=== PATIENT | female | born 1945 | race Caucasian/White ===

== ENCOUNTER 2021-10-22 14:30 | Outpatient (REF) | payer MEDICARE, MEDICAID, SELFPAY ==
[2021-10-22 15:07] LABS: COVID-19 Test Negative (Negative)
== END 2021-10-22 14:31 | disposition home or self-care (01) ==
LOC: HO.LAB 14:30
PROVIDERS: PCP Internal Medicine; Visit Provider Internal Medicine
DX: Z20.822 Contact with and (suspected) exposure to COVID-19 (principal)
CPT/HCPCS: 36415; 87635; C9803

== ENCOUNTER 2025-01-21 19:05 | Emergency (ER) | payer MEDICARE, MEDICAID, SELFPAY ==
--- NOTE | 2025-01-21 | ECG_ITS ---
Test Reason : FALL Blood Pressure : */* mmHG Vent. Rate : 73 BPM Atrial Rate : 73 BPM P-R Int : 154 ms QRS Dur : 80 ms QT Int : 416 ms P-R-T Axes : 67 -22 41 degrees QTcB Int : 458 ms Sinus rhythm with Premature atrial complexes with Aberrant conduction Septal infarct , age undetermined Abnormal ECG No previous ECGs available Referred By: Generic ED Physician Electronically Signed By: Camilo Penn
--- NOTE | ~2025-01-21 | XR_ITS ---
CLINICAL HISTORY: pain 2 view left knee Comparison: None Findings: No fractures or dislocations. Severe degenerative disease with joint space narrowing, and tricompartmental osteophytosis. No joint effusion. No radiopaque foreign body. IMPRESSION: 1. No acute findings. 2. Severe DJD. This document has been electronically signed by: Daniela Coleman MD on 01/21/2025 21:53:33
--- NOTE | ~2025-01-21 | CT_ITS ---
CLINICAL HISTORY: fall with head strike CT cervical spine without contrast Comparison: None Findings: Severe multilevel spondylosis with disc space narrowing, endplate sclerosis, osteophytosis and facet arthropathy with moderate reversal of the normal cervical lordosis and dextroscoliosis. Trace anterolisthesis of C2 and C3. No acute fractures or dislocations. No acute findings on limited view of the intracranial contents. No cervical fluid collections or masses. Lung apices are clear. IMPRESSION: No evidence of acute fracture or traumatic listhesis of the cervical spine. Severe multilevel spondylosis. This document has been electronically signed by: Daniela Coleman MD on 01/21/2025 21:40:03
--- NOTE | ~2025-01-21 | XR_ITS ---
CLINICAL HISTORY: shoulder pain 2 view right shoulder Comparison: None Findings: Bones intact. No dislocations. Moderate to severe degenerative disease of the glenohumeral joint with joint space narrowing and osteophytosis. No erosions. No radiopaque foreign body. IMPRESSION: Moderate to severe degenerative disease of the glenohumeral joint with joint space narrowing and osteophytosis. This document has been electronically signed by: Daniela Coleman MD on 01/21/2025 21:54:28
--- NOTE | ~2025-01-21 | XR_ITS ---
CLINICAL HISTORY: fall 1 view chest x-ray Comparison: None Findings: The lungs are clear. Normal size heart. No acute fracture. IMPRESSION: 1. No acute findings. This document has been electronically signed by: Daniela Coleman MD on 01/21/2025 21:23:50
--- NOTE | ~2025-01-21 | XR_ITS ---
CLINICAL HISTORY: fall 2 view pelvis Comparison: None Findings: No acute fracture or dislocation. Severe multilevel spondylosis of the lumbar spine with severe levoscoliosis. Soft tissues are unremarkable. IMPRESSION: 1. No evidence of acute fracture or dislocation. This document has been electronically signed by: Daniela Coleman MD on 01/21/2025 21:24:55
--- NOTE | ~2025-01-21 | CT_ITS ---
CLINICAL HISTORY: fall with head strike CT head without contrast Comparison: None Findings: No intra-axial mass, midline shift, hydrocephalus, or acute hemorrhage. No significant atrophy-like change or white matter disease. Right frontal possible arachnoid cyst with calvarial remodeling. There is no sinus or mastoid fluid. The orbits are unremarkable. There is no acute fracture. IMPRESSION: 1. No acute intracranial findings specifically, no acute intracranial hemorrhage. 2. Right frontal possible arachnoid cyst with calvarial remodeling. This document has been electronically signed by: Daniela Coleman MD on 01/21/2025 21:44:00
--- NOTE | ~2025-01-21 | XR_ITS ---
CLINICAL HISTORY: shoulder pain 2 view left shoulder Comparison: None Findings: No fractures or dislocations. Moderate degenerative disease of the glenohumeral joint with joint space narrowing and osteophytosis. No erosions. No radiopaque foreign body. IMPRESSION: Moderate degenerative disease of the glenohumeral joint with joint space narrowing and osteophytosis. This document has been electronically signed by: Daniela Coleman MD on 01/21/2025 21:53:50
--- NOTE | ~2025-01-21 | XR_ITS ---
CLINICAL HISTORY: pain 2 view right knee Comparison: None Findings: Bones intact. No dislocations. Moderate degenerative disease with joint space narrowing and tricompartmental spurring. No joint effusion. No radiopaque foreign body. IMPRESSION: Moderate degenerative disease with joint space narrowing and tricompartmental spurring. This document has been electronically signed by: Daniela Coleman MD on 01/21/2025 21:57:05
[2025-01-21 19:17] VITALS: BP 134/78; BP 159/78; PULSE 88; PULSE 99; RESP 20; TEMP 36.8; O2SAT 98
[2025-01-21 20:10] LABS: MANUAL DIFF FLAG NO
[2025-01-21 20:11] LABS: Basophils Percent Auto 0.5 % (0-2); Eosinophils Percent Auto 0.1 % (0-4); Hematocrit 35.5 % (37.0-47.0); Hemoglobin 11.8 g/dl (12.0-16.0); Imm Gran Abs Auto 0.03 X10*3/uL (0.00-0.03); Imm Gran Pct Auto 0.4 % (0.0-0.4); Lymphocytes Absolute Auto 3.4 X10*3/uL (1.2-4.9); Lymphocytes Percent Auto 39.3 % (20-40); Mean Corpuscular HGB Conc 33.2 g/dl (31.0-35.0); Mean Corpuscular Hemoglobin 33.3 pg (27.0-33.0); Mean Corpuscular Volume 100.3 fL (80.0-98.0); Mean Platelet Volume 8.5 fL (9.4-12.3); Monocytes Absolute Auto 1.3 X10*3/uL (0.1-1.2); Monocytes Percent Auto 14.6 % (2-11); Neutrophils Absolute Auto 3.9 x10*3/uL (2.0-8.3); Neutrophils Percent Auto 45.1 % (45-73); Platelet Count 236 X10*3/uL (160-400); Red Blood Count 3.54 X10*6/uL (4.20-5.50); Red Cell Distribution Width 13.1 % (11.0-16.0); White Blood Count 8.6 X10*3/uL (4.8-10.8)
[2025-01-21 20:24] LABS: Alanine Aminotransferase 12 U/L (0-31); Albumin Level 3.3 g/dL (3.5-5.0); Alkaline Phosphatase 94 U/L (39-117); Anion Gap 13 (12-20); Aspartate Amino Transferase 18 U/L (5-31); Bilirubin Total 0.3 mg/dL (0.0-1.0); Blood Urea Nitrogen 17 mg/dL (9-16); Carbon Dioxide 24 mmol/L (22-29); Chloride 109 mmol/L (96-108); Creatinine Clr Calc Pharmacy 65.7; Estimated Glomerular Filt Rate > 60; Glucose Random 90 mg/dL (60-115); Potassium 4.1 mmol/L (3.3-5.1); Sodium 142 mmol/L (135-145); Total Protein 6.3 g/dL (6.5-8.0)
--- NOTE | 2025-01-21 20:28 | PC.NURSE ---
pt biba from intermediate, a&ox4, respirations even and unlabored. pt reports fall out of wheelchair yesterday while trying to change the trash. +head strike and thinners. pt reports she did not want transportation last night. pt reports she woke up today and developed right sided head pain. ems placed c collar, pt refused to keep it on provider aware. vss. intermediate staff at bedside.
[2025-01-21 20:31] LABS: Troponin-I High Sensitivity 8.6 ng/L (<3.5-17.0)
--- NOTE | 2025-01-21 20:59 | ED.GENADULT ---
HPI - General Adult General Chief complaint: Fall Stated complaint: fall from wheelchair yesterday,dizzy Time Seen by Provider: 01/21/25 19:58 Source: patient Mode of arrival: wheelchair Limitations: no limitations History of Present Illness ED Provider: Braydon HPI narrative: 79yo wheelchair bound female presenting for mechanical fall. Pt was attempting to change her garbage earlier this evening and fell out of her wheelchair striking her head on the ground. She denies LOC and she was not on the ground for a prolonged period of time. She is complaining of head pain, shoulder pain and knee pain. She denies chest pain, sob, neck pain, abd pain. Pt is currently on Plavix. She states she use to be on eliquis however this was discontinued due to her being a fall risk Related Data Allergies Allergy/AdvReac Type Severity Reaction Status Date / Time bee pollen [bees] Allergy Anaphylaxis Verified 01/21/25 19:21 Penicillins Allergy Anaphylaxis Verified 01/21/25 19:21 sulfamethoxazole Allergy Anaphylaxis Verified 01/21/25 19:21 [From Bactrim] trimethoprim [From Bactrim] Allergy Anaphylaxis Verified 01/21/25 19:21 Review of Systems Review of Systems: head pain, shoulder pain, knee pain Yes all other systems are reviewed and are negative [facility] Past Medical History Attestation statement: The following information was validated with the patient. [facility] Narrative: CAD Social History Social History Smoked in Last 30 Days: No Use of substances other than those prescribed or required for medical reasons: No Advance Directives: No Advance Directives Information Provided: No Do you have a plan to hurt others: No Plan Physical Exam ED Vital Signs: Vital Signs - 24 hr 01/21/25 19:17 Temperature 98.3 F Pulse Rate 88 Respiratory Rate 20 Blood Pressure 159/78 H Pulse Oximetry 98 Oxygen Delivery Method Room Air BMI result Body Mass Index 30.0 well-appearing elderly female in no acute distress Alert and oriented x4; no focal neurologic deficits appreciated Mild frontal scalp tenderness to palpation; no midline C-spine tenderness to palpation Lungs clear to auscultation bilaterally Normal S1-S2 regular rate and rhythm Abdomen is soft nontender nondistended Pelvis stable nontender Mild tenderness to palpation of bilateral anterior shoulders and bilateral anterior knees however no significant deformities appreciated; patient neurovascularly intact in both upper and lower extremities with strong distal pulses Medications Administered Discontinued Medications Generic Name Dose Route Start Last Admin Trade Name Surekha PRN Reason Stop Dose Admin Acetaminophen 650 mg 01/21/25 21:01 01/21/25 21:18 Acetaminophen 325 Mg Tablet PO 01/21/25 21:02 650 mg ONCE ONE Administration Medical Decision Making Medical Decision Making [facility] Narrative: 79-year-old female presenting for fall - I am concerned for the following; head trauma/head bleed, neck trauma, fracture versus dislocation - labs and imaging studies ordered Lab and imaging interpretation: - normal WBC, normal H and H, electrolytes within normal limits, normal creatinine - no signs of ischemia patient's ECG - I reviewed patient's head and neck imaging did not appreciate any signs of bleed or neck fracture; Radiology impression is negative for acute intracranial findings and neck fracture - I reviewed patient's plain films which appear positive for severe osteoarthritis; DJD noted by radiologist without fracture or dislocation On reassessment patient is still well-appearing and reports improvement in pain. At this time patient is stable for discharge as her workup is negative for severe/life-threatening pathology. Patient is comfortable with being discharged back to her facility. I gave her followup instructions and return precautions. Lab Data 01/21/25 19:58 01/21/25 19:58 Labs: Lab Results 01/21/25 01/21/25 Range/Units 19:58 20:50 WBC 8.6 (4.8-10.8) X10*3/uL RBC 3.54 L (4.20-5.50) X10*6/uL Hgb 11.8 L (12.0-16.0) g/dl Hct 35.5 L (37.0-47.0) % MCV 100.3 H (80.0-98.0) fL MCH 33.3 H (27.0-33.0) pg MCHC 33.2 (31.0-35.0) g/dl RDW 13.1 (11.0-16.0) % Plt Count 236 (160-400) X10*3/uL MPV 8.5 L (9.4-12.3) fL Immature Gran % (Auto) 0.4 (0.0-0.4) % Neut % (Auto) 45.1 (45-73) % Lymph % (Auto) 39.3 (20-40) % Wagoner % (Auto) 14.6 H (2-11) % Eos % (Auto) 0.1 (0-4) % Baso % (Auto) 0.5 (0-2) % Lymph # (Auto) 3.4 (1.2-4.9) X10*3/uL Wagoner # (Auto) 1.3 H (0.1-1.2) X10*3/uL Eos # (Auto) 0.0 (0.0-0.4) X10*3/uL Baso # (Auto) 0.0 (0.0-0.2) X10*3/uL Abs Immat Gran (auto) 0.03 (0.00-0.03) X10*3/uL Absolute Neuts (auto) 3.9 (2.0-8.3) x10*3/uL Absolute Nucleated RBC 0.000 (0.0-0.012) X10*3/uL Nucleated RBC % (auto) 0.0 (0.0-0.2) /100WBC PT 12.2 (10.9-12.4) SEC INR 1.0 (0.9-1.1) APTT 41.6 H (26.0-36.8) SEC Sodium 142 (135-145) mmol/L Potassium 4.1 (3.3-5.1) mmol/L Chloride 109 H (96-108) mmol/L Carbon Dioxide 24 (22-29) mmol/L Anion Gap 13 (12-20) BUN 17 H (9-16) mg/dL Creatinine 0.64 (0.5-1.4) mg/dL Estim Creat Clear Calc 65.7 Estimated GFR > 60 Random Glucose 90 (60-115) mg/dL Calcium 9.0 (8.4-10.2) mg/dL Magnesium 1.9 (1.6-2.6) mg/dL Total Bilirubin 0.3 (0.0-1.0) mg/dL AST 18 (5-31) U/L ALT 12 (0-31) U/L Alkaline Phosphatase 94 (39-117) U/L Total Creatine Kinase 53 (26-140) U/L Troponin I High Sens 8.6 (<3.5-17.0) ng/L Total Protein 6.3 L (6.5-8.0) g/dL Albumin 3.3 L (3.5-5.0) g/dL Discharge Plan Discharge Clinical Impression: Fall Qualifiers: Encounter type: initial encounter Qualified Code(s): W19.XXXA - Unspecified fall, initial encounter Head pain Qualifiers: Headache type: unspecified Headache chronicity pattern: unspecified pattern Intractability: not intractable Qualified Code(s): R51.9 - Headache, unspecified Shoulder pain, bilateral Qualifiers: Chronicity: chronic Qualified Code(s): M25.511 - Pain in right shoulder Knee pain, bilateral Qualifiers: Chronicity: chronic Qualified Code(s): M25.561 - Pain in right knee Patient Disposition: Xfer [facility] Instructions: Fall Prevention for Older Adults (ED), Head Injury (ED), Fall Prevention (ED) Additional Instructions: Please follow up with the primary care provider in the next 24-48 hours for reassessment. If you develop any new or worsening symptoms please return to the emergency department Print Language: Bengali
[2025-01-21 21:08] LABS: Prothrombin Time 12.2 SEC (10.9-12.4)
[2025-01-21 21:10] LABS: Partial Thromboplastin Time 41.6 SEC (26.0-36.8)
[2025-01-21 21:15] LABS: Magnesium 1.9 mg/dL (1.6-2.6)
[2025-01-21] MEDS: Acetaminophen 325 MG TABLET 650 MG PO (21:18)
--- NOTE | 2025-01-21 21:22 | PC.NURSE ---
pt medicated per mar,tolerated well whole with water.
[2025-01-21 23:11] VITALS: BP 142/75; PULSE 85; RESP 18; TEMP 36.3; O2SAT 94
[2025-01-21 23:59] VITALS: BP 142/75; PULSE 85; RESP 18; TEMP 36.3; O2SAT 94
== END 2025-01-22 ==
PROVIDERS: Emergency Provider Student in an Organized Health Care Education/Training Program; PCP Internal Medicine
DX: S49.91XA Unspecified injury of right shoulder and upper arm, initial encounter (principal); R51.9 Headache, unspecified; M25.561 Pain in right knee; M25.562 Pain in left knee; M25.512 Pain in left shoulder; M25.511 Pain in right shoulder; R94.31 Abnormal electrocardiogram [ECG] [EKG]; R10.2 Pelvic and perineal pain; M54.2 Cervicalgia; R07.89 Other chest pain; W05.0XXA Fall from non-moving wheelchair, initial encounter; Y93.9 Activity, unspecified; Y92.009 Unspecified place in unspecified non-institutional (private) residence as the place of occurrence of the external cause; Y99.8 Other external cause status; Z79.899 Other long term (current) drug therapy
CPT/HCPCS: 36415; 70450; 71045; 72125; 72170; 73030; 73560; 80053; 82550; 83735; 84484; 85025; 85610; 85730; 93005; 99284; 99285

== ENCOUNTER → 2025-01-21 19:53 | Outpatient (BNV) | payer MEDICARE, MEDICAID, SELFPAY | PROVIDERS: Emergency Provider Student in an Organized Health Care Education/Training Program; PCP Internal Medicine; Visit Provider Internal Medicine Cardiovascular Disease | DX: I49.1 Atrial premature depolarization (principal); R94.31 Abnormal electrocardiogram [ECG] [EKG] | CPT/HCPCS: 93010 ==

== ENCOUNTER → 2025-01-21 19:58 | Outpatient (BNV) | payer MEDICARE, MEDICAID, SELFPAY | PROVIDERS: Emergency Provider Student in an Organized Health Care Education/Training Program; PCP Internal Medicine; Visit Provider Student in an Organized Health Care Education/Training Program | DX: M25.562 Pain in left knee (principal); M25.561 Pain in right knee; M17.0 Bilateral primary osteoarthritis of knee; R42 Dizziness and giddiness; M25.512 Pain in left shoulder; M25.511 Pain in right shoulder; M47.896 Other spondylosis, lumbar region; M41.86 Other forms of scoliosis, lumbar region; Z03.89 Encounter for observation for other suspected diseases and conditions ruled out; S19.9XXA Unspecified injury of neck, initial encounter | CPT/HCPCS: 70450; 71045; 72125; 72170; 73030; 73560 ==